=== PATIENT | female | born 1930 | race Hispanic/Latino ===

== ENCOUNTER 2016-08-14 11:37 | Emergency (ER) | payer SELFPAY ==
[~2016-08-14] VITALS: Ht 165.1 cm; Wt 47.7 kg
[2016-08-14 12:25] LABS: HEMATOCRIT 35.6 % (36.0-46.0); MCH 30.9 PG (29.0-34.0); MCV 90.8 FL (83-99); MEAN PLAT.VOLUME 10.6 uM^3 (9.5-12.4); PLATELET COUNT 166 K/uL (156-360); RBC DIS.WIDTH-CV 15.1 % (11.8-14.6); RBC DIS.WIDTH-SD 50.2 % (39-53); RED BLOOD COUNT 3.92 M/uL (3.80-5.20); WHITE BLOOD COUNT 6.3 K/uL (4.1-10.2)
[2016-08-14 12:31] LABS: CHLORIDE 101 mEq/L (99-109); POTASSIUM 4.2 mEq/L (3.7-5.4); SODIUM 138 mEq/L (136-147)
[2016-08-14 12:32] LABS: GLUCOSE 107 mg/dL (70-99)
[2016-08-14 12:34] LABS: ANION GAP 10 MEQ/L (2-14)
[2016-08-14 12:36] LABS: GFR ESTIMATE (CALCULATED) 45 mL/min/
[2016-08-14 12:37] LABS: UREA NITROGEN (BUN) 20 mg/dL (9-23)
[2016-08-14 12:41] LABS: EOSINOPHIL (%) 1.3 % (0-5); EOSINOPHIL COUNT 0.1 K/uL (0-0.3); IMMATURE GRANULOCYTE (%) 0.5 % (0.0-0.7); MONOCYTE (%) 16.7 % (3-12); MONOCYTE COUNT 1.1 K/uL (0-0.8); NEUTROPHIL (%) 64.8 % (45-76); NEUTROPHIL COUNT 4.1 K/uL (1.8-6.4)
[2016-08-14] MEDS ORDERED: TAMIFLU75 MG PO (13:27)
[2016-08-14 14:04] VITALS: BP 179/88
== END 2016-08-14 14:05 | disposition home or self-care (01) ==
LOC: EME 11:37
PROVIDERS: Emergency Medicine
DX: J10.1 Influenza due to other identified influenza virus with other respiratory manifestations (principal)
CPT/HCPCS: 71010; 80048; 85025; 99281; 99283